=== PATIENT | male | born 1965 | race Hispanic/Latino ===

== ENCOUNTER 2019-02-07 10:15 | Emergency (ER) | payer OTHER ==
--- OUTSIDE RECORDS SUMMARY | 2019-02-07 10:25 | XMS REPORT | Continuity of Care Document ---
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 [facility] HTN - Hypertension Active Problem 01/15/2019 [facility] Hyperlipidemia Active Problem 01/15/2019 [facility] Morbid obesity Active Problem 01/15/2019 [facility] Medications Medication Details Route Status Patient Ordering Order Source Instructions Provider Date Aspirin 81 mg=1 tab, Active 06/28/20 [facility] PO, Daily, 0 18 [facility] Coated 81 mg Refill(s) oral delayed release tablet baclofen 5 mg 5 mg=1 tab, No Longer 06/28/20 [facility] oral tablet PO, Daily, Active 18 [facility] PRN Muscle Spasms, # 30 tab, 2 Refill(s), Pharmacy: [id number] Allergies, Adverse Reactions, Alerts Substance Category Reaction Severity Reaction Status Date Comments Source type Reported iodine Assertion Drug Active [facility] Immunizations Immunization Date Given Site Status Last Updated Comments Source Results Order Results Value Reference Date Interpretation Comments Source Name Range Vital Signs Vital Sign Value Date Comments Source Weight 113.636 01/10/2019 [facility] BMI Calculated 41.69 01/10/2019 [facility] Height 165.1 cm 01/10/2019 [facility] Respitory Rate 16 01/10/2019 [facility] Heart Rate 75 01/10/2019 [facility] Systolic (mm Hg) 129 01/10/2019 [facility] Diastolic (mm Hg) 78 01/10/2019 [facility] BMI Calculated 42.02 06/28/2018 [facility] Weight 114.545 06/28/2018 [facility] Heart Rate 65 06/28/2018 [facility] Height 165.1 cm 06/28/2018 [facility] Systolic (mm Hg) 139 06/28/2018 [facility] Diastolic (mm Hg) 84 06/28/2018 [facility] Encounters Location Location Encounter Encounter Reason Attending ADM DC Status Source Details Type Number For Provider Date Date Visit Outpatient [id number] MARYSE 05/03 Active [facility] [facility] [id number] MARYSE 06/28 Active [facility] [place] [facility] Out[facility] [id number] Maryse 06/28 06/29 [facility] [place] Outpatient [id number] MARYSE 08/09 Active [facility] [place] Outpatient [id number] MARYSE 09/21 Active [facility] [place] Outpatient [id number] MARYSE 10/18 Active [facility] [place] Outpatient [id number] MARYSE 12/06 [facility] Outpatient [id number] Maryse 12/06 [facility] [place] Outpatient [id number] Maryse 01/10 [facility] [place] [facility] Outpatient [id number] Maryse 01/10 01/11 [facility] Neurology [facility] [place] Outpatient [id number] Maryse 04/04 Active [facility] [place] Procedures Procedure Code Date Perfomer Comments Source
--- OUTSIDE RECORDS SUMMARY | 2019-02-07 10:25 | XMS REPORT | Summary of Care ---
:1965 Author Organization [facility] [place] Address [address] [place] [address]- phone Encounter [facility] Lainey(FIN) [id number] Date(s): 06/28/18 - 06/28/18 [facility] [address] [place], [place] [address]- [phone] Discharge Disposition: Home or Self Care Attending Physician: Justin Corrales MD Referring Physician: Justin Corrales MD Vital Signs Most recent to oldest [Reference Range]: 1 Height 165.1 cm (06/28/18 9:00 AM) Blood Pressure [90-140/60-90 mmHg] 139/84 mmHg (06/28/18 9:00 AM) Peripheral Pulse Rate [60-100 bpm] 65 bpm (06/28/18 9:00 AM) Weight 114.545 kg (06/28/18 9:00 AM) Body Mass Index 42.02 m2 (06/28/18 9:00 AM) Problem List Condition Effective Dates Status Health Status Informant Blepharospasm(Confirmed) Active Hemifacial spasm(Confirmed) Active HTN - Hypertension(Confirmed) Active Hyperlipidemia(Confirmed) Active Morbid obesity(Confirmed) Active Allergies, Adverse Reactions, Alerts Substance Reaction Severity Status iodine Active Medications Aspirin Enteric Coated 81 mg oral delayed release tablet 81 mg=1 tab, PO, Daily, 0 Refill(s) Start Date: 06/28/18 Status: Orderedbaclofen 5 mg oral tablet 5 mg=1 tab, PO, Daily, PRN Muscle Spasms, # 30 tab, 2 Refill(s), Pharmacy: [facility] [id number] Start Date: 06/28/18 Stop Date: 10/18/18 Status: Discontinued Results No data available for this section Immunizations No data available for this section Procedures No data available for this section Social History Social History Type Response Employment/School Status: Employed. Work/School description: [employer]. Smoking Status Never smoker; Exposure to Tobacco Smoke None; Cigarette Smoking Last 365 Days No; Reg Smoking Cessation Counseling No entered on: 01/10/19 Assessment and Plan No data available for this section
--- OUTSIDE RECORDS SUMMARY | 2019-02-07 10:25 | XMS REPORT | Summary of Care ---
:1965 Author Organization [facility] [place] Address [address] [place] [address]- phone Encounter HQ Donavan_shey(FIN) [id number] Date(s): 01/10/19 - 01/10/19 [facility] [address], [place] [address]- [phone] Discharge Disposition: Home or Self Care Attending Physician: Justin Corrales MD Referring Physician: Justin Corrales MD Vital Signs Most recent to oldest [Reference Range]: 1 Height 165.1 cm (01/10/19 2:21 PM) Blood Pressure [90-140/60-90 mmHg] 129/78 mmHg (01/10/19 2:21 PM) Respiratory Rate [14-20 BRMIN] 16 BRMIN (01/10/19 2:21 PM) Peripheral Pulse Rate [60-100 bpm] 75 bpm (01/10/19 2:21 PM) Weight 113.636 kg (01/10/19 2:21 PM) Body Mass Index 41.69 m2 (01/10/19 2:21 PM) Problem List Condition Effective Dates Status Health Status Informant Blepharospasm(Confirmed) Active Hemifacial spasm(Confirmed) Active HTN - Hypertension(Confirmed) Active Hyperlipidemia(Confirmed) Active Morbid obesity(Confirmed) Active Allergies, Adverse Reactions, Alerts Substance Reaction Severity Status iodine Active Medications No Known Medications Results No data available for this section [...]
[2019-02-07] MEDS ORDERED: ONDANSETRON 4 MG/2 ML VIAL ONE (10:36)
[2019-02-07] MEDS ORDERED: KETOROLAC 30 MG/ML INJ ONE (10:36)
[2019-02-07] MEDS ORDERED: MORPHINE 4 MG/ML SYR ONE ×2 (10:36→11:03)
[2019-02-07 10:38] LABS: Absolute Lymphocytes (CBC) 2.3 K/uL (0.7-4.9); Absolute Monocytes 0.8 K/uL (0.1-1.3); Absolute Neutrophil 5.3 K/uL (1.8-8.0); Basophils % 0.5 % (0-1.3); Eosinophils % 2.6 % (0-4.4); Hematocrit 42.5 % (39.6-49.0); Lymphocytes % 26.3 % (15.3-44.8); MPV 8.3 fL (7.6-11.3); Monocytes % 9.1 % (3.3-12.3); RBC Red Blood Cell Count 4.63 M/uL (4.33-5.43)
[2019-02-07] MEDS ORDERED: NA CHLORIDE 0.9% 1,000 ML ONE (10:39)
[2019-02-07 11:03] LABS: ALT/SGPT 34 U/L (12-78); AST/SGOT 20 U/L (15-37); Albumin 3.8 g/dL (3.4-5.0); Alkaline Phosphatase 71 U/L (45-117); BUN Blood Urea Nitrogen 20 mg/dL (7-18); Bicarbonate 27 mmol/L (21-32); Bilirubin Direct < 0.1 mg/dL (0-0.2); Bilirubin Total 0.3 mg/dL (0.2-1.0); Glucose Level 101 mg/dL (74-106); Lipase 152 U/L (73-393); Potassium 4.6 mmol/L (3.5-5.1); Protein, Total 8.1 g/dL (6.4-8.2); Sodium Level 139 mmol/L (136-145)
--- NOTE | 2019-02-07 11:09 | RAD REPORT ---
EXAM DESCRIPTION: CT - Stone Protocol - 02/07/2019 11:00 am CLINICAL HISTORY: Flank pain. FLANK PAIN COMPARISON: No comparisons TECHNIQUE: Axial images were obtained without oral or IV contrast. Lack of contrast limits solid org an and vascular assessment. The [id number] spans the entirety of the system partially obscuring uppermost abdomen and lung bases. Coronal reformatted images were obtained and reviewed. All CT scans are performed using dose optimization technique as appropriate and may include automated exposure control or mA/KV adjustment according to patient size. FINDINGS: The lower lung herrera are clear. Imaged portions of the liver and spleen show no suspicious findings on non-contrast imaging. The panc reas and adrenal glands are normal. No pathologic lymphadenopathy in the abdomen or pelvis. Bilateral caliceal renal calculi are present the largest measuring 5 mm in the inferior pole right ki dney. A 5 mm stone (1200 HU) is present in the proximal right ureter resulting mild right hydronephro sis. No bowel obstruction, free air, free fluid or abscess. Normal appendix noted. No significant bony abnormality. IMPRESSION: 5 mm stone proximal right ureter resulting in mild right hydronephrosis. Additional bilateral caliceal stones as detailed.
[2019-02-07 11:38] LABS: Urine Blood 2+ (NEG); Urine Glucose NEGATIVE (NEG); Urine Protein NEGATIVE (NEG); Urine Specific Gravity 1.025 (1.005-1.030)
[2019-02-07 11:40] LABS: Urine Bacteria <20 /HPF (NONE SEEN); Urine Culture Reflex Order NOT NEEDED; Urine Mucus MOD /HPF (NONE SEEN); Urine RBC >50 /HPF (NONE SEEN)
[2019-02-07] MEDS ORDERED: CIPROFLOXACIN HCL 500 MG TAB ONE (11:52)
[2019-02-07] MEDS ORDERED: TAMSULOSIN 0.4 MG SR CAP ONE (11:52)
--- NOTE | 2019-02-07 12:06 | ER ---
Nurse's Notes [facility] Name: Orlando Flores Age: 53 yrs Sex: Male : 1965 Arrival Date: 02/07/2019 Time: 10:16 Bed 24 Private MD: Diagnosis: Calculus of kidney with calculus of ureter Presentation: 02/07 10:22 Initial Sepsis Screen: Does the patient meet any 2 criteria? No. Patient's initial sg sepsis screen is negative. Does the patient have a suspected source of infection? No. Patient's initial sepsis screen is negative. 10:24 Presenting complaint: Right flank pain that radiates to groin x 2 days. Transition of hb care: patient was not received from another setting of care. Onset of symptoms was February 06, 2019. Risk Assessment: Do you want to hurt yourself or someone else? Patient reports no desire to harm self or others. Care prior to arrival: None. 10:24 Method Of Arrival: Ambulatory hb 10:24 Acuity: PINO 3 hb Historical: - Allergies: 10:25 Iodine; hb - PMHx: 10:25 Hypertension; Hyperlipidemia; hb - Immunization history:: Adult Immunizations up to date. - Social history:: Smoking status: Patient/guardian denies using tobacco. - Ebola Screening: : No symptoms or risks identified at this time. Screenin:33 Abuse screen: Denies threats or abuse. Denies injuries from another. Nutritional sg screening: No deficits noted. Tuberculosis screening: No symptoms or risk factors identified. Never had TB. Fall Risk None identified. Assessment: 10:31 General: Appears in no apparent distress. uncomfortable, well groomed, well developed, sg well nourished, Behavior is cooperative, appropriate for age, restless. Pain: Complains of pain in back Pain radiates to right inguinal area Quality of pain is described as aching, sharp. Neuro: Level of Consciousness is awake, alert, obeys commands, Oriented to person, place, time, situation. Cardiovascular: Capillary refill is brisk in bilateral fingers Patient's skin is warm and dry. Chest pain is denied. Respiratory: Airway is patent Respiratory effort is even, unlabored, Respiratory pattern is regular, symmetrical. GI: Abdomen is round non-distended, obese, Bowel sounds present X 4 quads. Abd is soft X 4 quads Reports nausea, tolerance of fluids, tolerance of food. : Reports pain in right flank(s), lower quadrant(s). EENT: No signs and/or symptoms were reported regarding the EENT system. Derm: Skin is pink, warm \T\ dry. Musculoskeletal: No signs and/or symptoms reported regarding the musculoskeletal system. 11:58 Reassessment: Patient appears in no apparent distress at this time. Patient and/or sg family updated on plan of care and expected duration. Pain level reassessed. Patient is alert, oriented x 3, equal unlabored respirations, skin warm/dry/pink. Patient states feeling better. Patient states symptoms have improved. Vital Signs: 10:22 BP 153 / 98; Pulse 65; Resp 19; Pulse Ox 97% on R/A; Pain 10/10; sg 10:22 Temp 98.2; sg 10:46 BP 145 / 79; Pulse 60; Resp 17; Pulse Ox 98% on R/A; Pain 9/10; sg 12:10 BP 132 / 77; Pulse 62; Resp 18; Pulse Ox 98% on R/A; Pain 6/10; sg ED Course: 10:16 Patient arrived in ED. as 10:20 Rubio Nicole NP is PHCP. pm1 10:20 Elva Knight MD is Attending Physician. pm1 10:22 Albert Banuelos, ROBERTA is Primary Nurse. sg 10:23 Arm band placed on. sg 10:23 Patient has correct armband on for positive identification. Bed in low position. Call sg light in reach. Side rails up X2. Pulse ox on. NIBP on. Warm blanket given. Head of bed elevated. 10:24 Triage completed. hb 10:25 Initial lab(s) drawn, by nd, sent to lab. IV inserted by Maria Del Carmen GRANADOS. Inserted saline sg lock: 20 gauge in right antecubital area, using aseptic technique. Blood collected. 10:[address] Scan. sg 11:01 CT Stone Protocol In Process Unspecified. EDMS 11:36 Urine Microscopic Only Sent. lt1 12:06 Foreign Singleton MD is Referral Physician. pm1 12:20 No provider procedures requiring assistance completed. IV discontinued, intact, sg bleeding controlled, No redness/swelling at site. Pressure dressing applied. Administered Medications: 10:28 Drug: Zofran 4 mg Route: IVP; Site: right antecubital; sg 11:15 Follow up: Response: No adverse reaction; Nausea is decreased sg 10:28 Drug: morphine 4 mg Route: IVP; Site: right antecubital; sg 11:30 Follow up: Response: No adverse reaction; Pain is decreased sg 10:30 Drug: NS 0.9% 1000 ml Route: IV; Rate: 1000 ml; Site: right antecubital; sg 12:24 Follow up: Response: No adverse reaction; IV Intake: 500ml sg 11:52 Drug: Flomax 0.4 mg Route: PO; sg 12:15 Follow up: Response: No adverse reaction sg 11:52 Drug: Cipro 500 mg Route: PO; sg 12:20 Follow up: Response: No adverse reaction sg Intake: 12:24 IV: 500ml; Total: 500ml. sg Outcome: 12:06 Discharge ordered by . pm1 12:20 Discharged to home ambulatory, with family. sg 12:20 Condition: good 12:20 Discharge instructions given to patient, family, Instructed on discharge instructions, follow up and referral plans. no drinking with medication, no driving heavy equipment, medication usage, safety practices, Demonstrated understanding of instructions, follow-up care, medications, Prescriptions given X 4. 12:21 Patient left the ED. sg Signatures: Dispatcher [employer] EDMS Albert Banuelos RN RN sg Martinez, Amelia as Marinas, Patrick, VAMP SEAMER VAMP SEAMER pm1 Kimber Jimenez RN RN [facility]
--- NOTE | 2019-02-07 12:06 | EDPHYS ---
Physician Documentation [facility] Name: Orlando Flores Age: 53 yrs Sex: Male : 1965 Arrival Date: 02/07/2019 Time: 10:16 Bed 24 Private MD: ED Physician Elva Knight HPI: 02/07 11:00 This 53 yrs old Male presents to ER via Ambulatory with complaints of Possible pm1 Kidney Stone. 11:01 The patient complains of pain in the right low back. The pain radiates to the right pm1 inguinal area. Onset: The symptoms/episode began/occurred 2 day(s) ago. Modifying factors: The symptoms are alleviated by nothing. the symptoms are aggravated by nothing. Associated signs and symptoms: Pertinent positives: nausea, vomiting, Pertinent negatives: diarrhea, dysuria, fever. Severity of pain: in the emergency department the pain is actually worse. The patient has experienced similar episodes in the past, and the symptoms today are exactly the same, to previous kidney stones, possible third kidney stone per patient. The patient has not recently seen a physician. Historical: - Allergies: 10:25 Iodine; hb - PMHx: 10:25 Hypertension; Hyperlipidemia; hb - Immunization history:: Adult Immunizations up to date. - Social history:: Smoking status: Patient/guardian denies using tobacco. - Ebola Screening: : No symptoms or risks identified at this time. ROS: 11:01 Constitutional: Negative for fever, chills, and weight loss, Eyes: Negative for injury, pm1 pain, redness, and discharge, ENT: Negative for injury, pain, and discharge, Neck: Negative for injury, pain, and swelling, Cardiovascular: Negative for chest pain, palpitations, and edema, Respiratory: Negative for shortness of breath, cough, wheezing, and pleuritic chest pain. 11:01 : Negative for injury, bleeding, discharge, and swelling, MS/Extremity: Negative for injury and deformity, Skin: Negative for injury, rash, and discoloration, Neuro: Negative for headache, weakness, numbness, tingling, and seizure. 11:01 Abdomen/GI: Positive for nausea and vomiting, Negative for abdominal pain, diarrhea, constipation. 11:01 Back: Positive for flank pain, on the right. Exam: 11:01 Constitutional: This is a well developed, well nourished patient who is awake, alert, pm1 and in no acute distress. Head/Face: Normocephalic, atraumatic. Eyes: Pupils equal round and reactive to light, extra-ocular motions intact. Lids and lashes normal. Conjunctiva and sclera are non-icteric and not injected. Cornea within normal limits. Periorbital areas with no swelling, redness, or edema. ENT: Nares patent. No nasal discharge, no septal abnormalities noted. Tympanic membranes are normal and external auditory canals are clear. Oropharynx with no redness, swelling, or masses, exudates, or evidence of obstruction, uvula midline. Mucous membranes moist. Neck: Trachea midline, no thyromegaly or masses palpated, and no cervical lymphadenopathy. Supple, full range of motion without nuchal rigidity, or vertebral point tenderness. No Meningismus. Chest/axilla: Normal chest wall appearance and motion. Nontender with no deformity. No lesions are appreciated. Cardiovascular: Regular rate and rhythm with a normal S1 and S2. No gallops, murmurs, or rubs. Normal PMI, no JVD. No pulse deficits. Respiratory: Lungs have equal breath sounds bilaterally, clear to auscultation and percussion. No rales, rhonchi or wheezes noted. No increased work of breathing, no retractions or nasal flaring. Abdomen/GI: Soft, non-tender, with normal bowel sounds. No distension or tympany. No guarding or rebound. No evidence of tenderness throughout. 11:01 Skin: Warm, dry with normal turgor. Normal color with no rashes, no lesions, and no evidence of cellulitis. MS/ Extremity: Pulses equal, no cyanosis. Neurovascular intact. Full, normal range of motion. 11:01 Back: normal spinal alignment noted, CVA tenderness, is noted on the right. 11:01 Neuro: Orientation: is normal, Motor: is normal, moves all fours, Gait: is steady, at a normal pace, without difficulty. Vital Signs: 10:22 BP 153 / 98; Pulse 65; Resp 19; Pulse Ox 97% on R/A; Pain 10/10; sg 10:22 Temp 98.2; sg 10:46 BP 145 / 79; Pulse 60; Resp 17; Pulse Ox 98% on R/A; Pain 9/10; sg 12:10 BP 132 / 77; Pulse 62; Resp 18; Pulse Ox 98% on R/A; Pain 6/10; sg MDM: 10:20 Patient medically screened. pm1 11:03 Data reviewed: vital signs. Data interpreted: Pulse oximetry: on room air is 98 %. pm1 Interpretation: normal. 12:05 Counseling: I had a detailed discussion with the patient and/or guardian regarding: the pm1 historical points, exam findings, and any diagnostic results supporting the discharge/admit diagnosis, lab results, radiology results, the need for outpatient follow up, a urologist, to return to the emergency department if symptoms worsen or persist or if there are any questions or concerns that arise at home. 02/07 10:21 Order name: Basic Metabolic Panel; Complete Time: 11:29 pm02/07 10:21 Order name: CBC with Diff; Complete Time: 10:41 pm1 02/07 10:21 Order name: Creatinine for Radiology; Complete Time: 11:29 pm1 02/07 10:21 Order name: Hepatic Function; Complete Time: 11:29 pm02/07 10:21 Order name: Lipase; Complete Time: 11:29 pm02/07 10:21 Order name: Urine Microscopic Only; Complete Time: 11:44 pm1 02/07 10:21 Order name: IV Saline Lock; Complete Time: 10:28 pm02/07 10:21 Order name: CT Stone Protocol; Complete Time: 11:29 pm1 02/07 11:34 Order name: Urine Dipstick--Ancillary (enter results); Complete Time: 11:44 ss 02/07 10:21 Order name: Labs collected and sent; Complete Time: 10:28 pm02/07 10:21 Order name: Urine Dipstick-Ancillary (obtain specimen); Complete Time: 11:35 pm1 Administered Medications: 10:28 Drug: Zofran 4 mg Route: IVP; Site: right antecubital; sg 11:15 Follow up: Response: No adverse reaction; Nausea is decreased sg 10:28 Drug: morphine 4 mg Route: IVP; Site: right antecubital; sg 11:30 Follow up: Response: No adverse reaction; Pain is decreased sg 10:30 Drug: NS 0.9% 1000 ml Route: IV; Rate: 1000 ml; Site: right antecubital; sg 12:24 Follow up: Response: No adverse reaction; IV Intake: 500ml sg 11:52 Drug: Flomax 0.4 mg Route: PO; sg 12:15 Follow up: Response: No adverse reaction sg 11:52 Drug: Cipro 500 mg Route: PO; sg 12:20 Follow up: Response: No adverse reaction Disposition: 21:17 Co-signature as Attending Physician, Elva Knight MD. ma2 Disposition: 02/07/19 12:06 Discharged to Home. Impression: Calculus of kidney with calculus of ureter. - Condition is Stable. - Discharge Instructions: Kidney Stones, Dietary Guidelines to Help Prevent Kidney Stones. - Prescriptions for Tylenol- Codeine #3 300-30 mg Oral Tablet - take 2 tablets by ORAL route every 6 hours As needed; 20 tablet. Zofran 4 mg Oral Tablet - take 1 tablet by ORAL route every 12 hours As needed; 20 tablet. Flomax 0.4 mg Oral Capsule, Sust. Release 24 hr - take 1 capsule by ORAL route once daily 1/2 hour following the same meal each day; 30 capsule. Cipro 500 mg Oral Tablet - take 1 tablet by ORAL route every 12 hours for 7 days; 14 tablet. - Medication Reconciliation Form, Thank You Letter, Antibiotic Education, Prescription Opioid Use form. - Follow up: Emergency Department; When: As needed; Reason: Worsening of condition. Follow up: Private Physician; When: 2 - 3 days; Reason: Recheck today's complaints, Continuance of care, Re-evaluation by your physician. Follow up: Foreign Singleton MD; When: 2 - 3 days; Reason: Recheck today's complaints, Continuance of care, Re-evaluation by your physician. - Problem is new. - Symptoms have improved. Signatures: Dispatcher [employer] EDMS Albert Banuelos RN RN sg Rubio Nicole, JEANA DIRECT CARE PROFESSIONAL pm1 Kimber Jimenez RN RN Elva Knight MD MD ma2 Corrections: (The following items were deleted from the chart) 12:07 12:06 02/07/2019 12:06 Discharged to Home. Impression: Calculus of kidney with calculus pm1 of ureter. Condition is Stable. Forms are Medication Reconciliation Form, Thank You Letter, Antibiotic Education, Prescription Opioid Use. Follow up: Emergency Department; When: As needed; Reason: Worsening of condition. Follow up: Private Physician; When: 2 - 3 days; Reason: Recheck today's complaints, Continuance of care, Re-evaluation by your physician. Problem is new. Symptoms have improved. pm1 12:21 12:07 02/07/2019 12:06 Discharged to Home. Impression: Calculus of kidney with calculus sg of ureter. Condition is Stable. Discharge Instructions: Kidney Stones, Dietary Guidelines to Help Prevent Kidney Stones. Prescriptions for Tylenol-Codeine #3 300-30 mg Oral Tablet - take 2 tablets by ORAL route every 6 hours As needed; 20 tablet, Zofran 4 mg Oral Tablet - take 1 tablet by ORAL route every 12 hours As needed; 20 tablet, Flomax 0.4 mg Oral Capsule, Sust. Release 24 hr - take 1 capsule by ORAL route once daily 1/2 hour following the same meal each day; 30 capsule, Cipro 500 mg Oral Tablet - take 1 tablet by ORAL route every 12 hours for 7 days; 14 tablet. and Forms are Medication Reconciliation Form, Thank You Letter, Antibiotic Education, Prescription Opioid Use. Follow up: Emergency Department; When: As needed; Reason: Worsening of condition. Follow up: Private Physician; When: 2 - 3 days; Reason: Recheck today's complaints, Continuance of care, Re-evaluation by your physician. Follow up: Foreign Singleton; When: 2 - 3 days; Reason: Recheck today's complaints, Continuance of care, Re-evaluation by your physician. Problem is new. Symptoms have improved. pm1
== END 2019-02-07 12:21 | disposition home or self-care (01) ==
LOC: ER 10:15
DX: N20.2 Calculus of kidney with calculus of ureter (principal); I10 Essential (primary) hypertension; E78.5 Hyperlipidemia, unspecified
CPT/HCPCS: 36415; 74176; 76377; 80048; 80076; 81003; 81015; 83690; 85025; 96374; 96375; 99284; J2405; J7030

== ENCOUNTER 2019-02-08 17:41 | Emergency (ER) | payer OTHER ==
--- NOTE | 2019-02-08 18:16 | EDPHYS ---
Physician Documentation [facility] Name: Ziggy Flores Age: 53 yrs Sex: Male : 1965 Arrival Date: 02/08/2019 Time: 17:47 Bed 28 Private MD: Sean Elliott B ED Physician Frederick Bajwa HPI: 02/08 18:33 This 53 yrs old Male presents to ER via Ambulatory with complaints of Possible snw Kidney Stone. 18:33 Onset: The symptoms/episode began/occurred 2 day(s) ago, and became persistent. snw Associated signs and symptoms: The patient has no apparent associated signs or symptoms. Modifying factors: The patient symptoms are alleviated by pain medications. The patient has experienced a previous episode, yesterday. The patient has been recently seen by a physician: The patient has been recently seen at the [facility] Emergency Department, yesterday. pt was in pain at home but eased on the way here, declines emergency at present. Reviewed plan of care, reviewed need for return prn vomiting, pain unmanageable at home, concerns, problems. Historical: - Allergies: 17:54 Iodine; aa5 - PMHx: 17:54 Hyperlipidemia; Hypertension; Kidney stones; aa5 - Immunization history:: Flu vaccine is not up to date. - Social history:: Smoking status: Patient/guardian denies using tobacco. - Ebola Screening: : No symptoms or risks identified at this time. ROS: 18:33 Constitutional: Negative for fever, chills, and weight loss, Eyes: Negative for injury, snw pain, redness, and discharge, ENT: Negative for injury, pain, and discharge, Neck: Negative for injury, pain, and swelling, Cardiovascular: Negative for chest pain, palpitations, and edema, Respiratory: Negative for shortness of breath, cough, wheezing, and pleuritic chest pain, Abdomen/GI: Negative for abdominal pain, nausea, vomiting, diarrhea, and constipation, : Negative for injury, bleeding, discharge, and swelling, MS/Extremity: Negative for injury and deformity, Skin: Negative for injury, rash, and discoloration, Neuro: Negative for headache, weakness, numbness, tingling, and seizure. 18:33 Back: Positive for flank pain. Exam: 18:33 Constitutional: This is a well developed, well nourished patient who is awake, alert, snw and in no acute distress. Head/Face: Normocephalic, atraumatic. Eyes: Pupils equal round and reactive to light, extra-ocular motions intact. Lids and lashes normal. Conjunctiva and sclera are non-icteric and not injected. Cornea within normal limits. Periorbital areas with no swelling, redness, or edema. Cardiovascular: Regular rate and rhythm with a normal S1 and S2. No gallops, murmurs, or rubs. Normal PMI, no JVD. No pulse deficits. Respiratory: Lungs have equal breath sounds bilaterally, clear to auscultation and percussion. No rales, rhonchi or wheezes noted. No increased work of breathing, no retractions or nasal flaring. Abdomen/GI: Soft, non-tender, with normal bowel sounds. No distension or tympany. No guarding or rebound. No evidence of tenderness throughout. Back: No spinal tenderness. No costovertebral tenderness. Full range of motion. Skin: Warm, dry with normal turgor. Normal color with no rashes, no lesions, and no evidence of cellulitis. MS/ Extremity: Pulses equal, no cyanosis. Neurovascular intact. Full, normal range of motion. Neuro: Awake and alert, GCS 15, oriented to person, place, time, and situation. Cranial nerves II-XII grossly intact. Motor strength 5/5 in all extremities. Sensory grossly intact. Cerebellar exam normal. Normal gait. Psych: Awake, alert, with orientation to person, place and time. Behavior, mood, and affect are within normal limits. Vital Signs: 17:54 BP 135 / 83; Pulse 62; Resp 18 S; Temp 97.6(TE); Pulse Ox 99% on R/A; Weight 113.4 kg aa5 (R); Height 5 ft. 5 in. (165.10 cm) (R); Pain 5/10; 17:54 Body Mass Index 41.60 (113.40 kg, 165.10 cm) aa5 MDM: 18:05 Patient medically screened. kandy 18:35 Data reviewed: vital signs, nurses notes. Data interpreted: Pulse oximetry: on room air snw is 99 %. Interpretation: normal. Counseling: I had a detailed discussion with the patient and/or guardian regarding: the historical points, exam findings, and any diagnostic results supporting the discharge/admit diagnosis, the need for outpatient follow up, to return to the emergency department if symptoms worsen or persist or if there are any questions or concerns that arise at home. Special discussion: I have referred the patient to see his PCP for further evaluation of high blood pressure. Based on the history and exam findings, there is no indication for further emergent testing or inpatient evaluation. I discussed with the patient/guardian the need to see the primary care provider for further evaluation of the symptoms. Administered Medications: No medications were administered Disposition: 02/09 06:56 Co-signature as Attending Physician, Frederick Bajwa MD I agree with the assessment and kandy plan of care. Disposition: 02/08/19 18:15 Discharged to Home. Impression: Encounter for screening, unspecified. - Condition is Stable. - Discharge Instructions: Kidney Stones, Dietary Guidelines to Help Prevent Kidney Stones. - Medication Reconciliation Form, Thank You Letter, Antibiotic Education, Prescription Opioid Use form. - Follow up: Sean Elliott MD; When: 1 week; Reason: Recheck today's complaints, Continuance of care, Re-evaluation by your physician. Follow up: Emergency Department; When: As needed; Reason: Worsening of condition. Signatures: Frederick Bajwa MD MD cha Therrien, Shelly, CURB MACHINE OPERATOR-C CURB MACHINE OPERATOR-Csnw Kaylee Hart, RN RN aa5 George Vogel RN RN rv Corrections: (The following items were deleted from the chart) 02/08 18:23 18:15 02/08/2019 18:15 Discharged to Home. Impression: Encounter for screening, rv unspecified. Condition is Stable. Forms are Medication Reconciliation Form, Thank You Letter, Antibiotic Education, Prescription Opioid Use. Follow up: Sean Elliott; When: 1 week; Reason: Recheck today's complaints, Continuance of care, Re-evaluation by your physician. Follow up: Emergency Department; When: As needed; Reason: Worsening of condition. snw
--- NOTE | 2019-02-08 18:16 | ER ---
Nurse's Notes [facility] Name: Ziggy Flores Age: 53 yrs Sex: Male : 1965 Arrival Date: 02/08/2019 Time: 17:47 Bed 28 Private MD: Sean Elliott B Diagnosis: Encounter for screening, unspecified Presentation: 02/08 17:53 Presenting complaint: Patient states: "I was here for a kidney stone yesterday and they aa5 told me it was going to pass so I felt better yesterday and this morning but today around 1pm the pain started again". Pt appears comfortable in triage. Transition of care: patient was not received from another setting of care. Onset of symptoms was January 2019. Risk Assessment: Do you want to hurt yourself or someone else? Patient reports no desire to harm self or others. Initial Sepsis Screen: Does the patient meet any 2 criteria? No. Patient's initial sepsis screen is negative. Does the patient have a suspected source of infection? No. Patient's initial sepsis screen is negative. Care prior to arrival: None. 17:53 Method Of Arrival: Ambulatory aa5 17:53 Acuity: PINO 3 aa5 Historical: - Allergies: 17:54 Iodine; aa5 - PMHx: 17:54 Hyperlipidemia; Hypertension; Kidney stones; aa5 - Immunization history:: Flu vaccine is not up to date. - Social history:: Smoking status: Patient/guardian denies using tobacco. - Ebola Screening: : No symptoms or risks identified at this time. Screenin:16 Abuse screen: Denies threats or abuse. Denies injuries from another. Nutritional rv screening: No deficits noted. Tuberculosis screening: No symptoms or risk factors identified. Fall Risk None identified. Assessment: 18:15 General: Appears in no apparent distress. comfortable, Behavior is calm, cooperative. rv Pain: Denies pain. Neuro: Level of Consciousness is awake, alert, obeys commands, Oriented to person, place, time, situation. Cardiovascular: Patient's skin is warm and dry. Respiratory: Airway is patent. GI: Bowel sounds present X 4 quads. Abd is soft and non tender X 4 quads. : No signs and/or symptoms were reported regarding the genitourinary system. EENT: No signs and/or symptoms were reported regarding the EENT system. Derm: Skin is intact. Musculoskeletal: No signs and/or symptoms reported regarding the musculoskeletal system. Vital Signs: 17:54 BP 135 / 83; Pulse 62; Resp 18 S; Temp 97.6(TE); Pulse Ox 99% on R/A; Weight 113.4 kg aa5 (R); Height 5 ft. 5 in. (165.10 cm) (R); Pain 5/10; 17:54 Body Mass Index 41.60 (113.40 kg, 165.10 cm) aa5 ED Course: 17:47 Patient arrived in ED. mr 17:47 Sean Elliott MD is Private Physician. mr 17:53 Arm band placed on. aa5 17:54 Triage completed. aa5 18:02 [facility]. snw 18:02 Frederick Bajwa MD is Attending Physician. snw 18:07 George Vogel, ROBERTA is Primary Nurse. rv 18:15 Sean Elliott MD is Referral Physician. snw 18:16 Patient has correct armband on for positive identification. Bed in low position. Call rv light in reach. Side rails up X 1. Adult w/ patient. Pulse ox on. NIBP on. 18:23 No provider procedures requiring assistance completed. Patient did not have IV access rv during this emergency room visit. Administered Medications: No medications were administered Outcome: 18:15 Discharge ordered by . snw 18:23 Discharged to home ambulatory. rv 18:23 Condition: good 18:23 Discharge instructions given to patient, Instructed on discharge instructions, follow up and referral plans. Demonstrated understanding of instructions, follow-up care. 18:23 Patient left the ED. rv Signatures: Evelyn Ibarra FNP-C FNP-Amadou S[facility] ParmraKaylee RN RN aa5 George Vogel RN RN rv
--- OUTSIDE RECORDS SUMMARY | 2019-02-09 12:35 | XMS REPORT | Continuity of Care Document ---
[...] Spasms, # 30 tab, 2 Refill(s), Pharmacy: [id number] Allergies, Adverse Reactions, Alerts Substance Category Reaction [...] Number For Provider Date Date Visit Outpatient [id number] MARYSE 05/03 Active [facility] [place] Out[facility] [id number] MARYSE 06/28 Active [facility] [place] [facility] Outpatient [id number] Maryse 06/28 06/29 [facility] [place] [facility]patient [id number] MARYSE 08/09 Active [facility] [place] Outpatient [id number] MARYSE 09/21 Active [facility] [place] Outpatient [id number] MARYSE 10/18 Active [facility] [place] Outpatient [id number] MARYSE 12/06 [facility] [place] Outpatient [id number] Maryse 12/06 [facility] [place] Outpatient [id number] Maryse 01/10 [facility] [place] [facility] Outpatient [id number] Maryse 01/10 01/11 [facility] [place] Outpatient [id number] Maryse 04/04 Active [facility] [place] Procedures Procedure Code Date Perfomer Comments Source
== END 2019-02-08 18:23 | disposition home or self-care (01) ==
LOC: ER 17:41
DX: Z13.9 Encounter for screening, unspecified (principal); E78.5 Hyperlipidemia, unspecified
CPT/HCPCS: 99283